=== PATIENT | female | born 1990 | race Caucasian/White ===

== ENCOUNTER 2024-08-05 11:13 | Outpatient (CLI) | payer OTHER | END 2024-08-05 11:58 | disposition home or self-care (01) | LOC: NST 11:13 | PROVIDERS: ATTEND Obstetrics & Gynecology Gynecology | DX: Z34.83 Encounter for supervision of other normal pregnancy, third trimester (principal) ==

== ENCOUNTER 2024-08-19 11:29 | Outpatient (CLI) | payer OTHER | END 2024-08-19 12:09 | disposition home or self-care (01) | LOC: NST 11:29 | PROVIDERS: ATTEND Obstetrics & Gynecology Maternal & Fetal Medicine | DX: Z3A.30 30 weeks gestation of pregnancy (principal) ==

== ENCOUNTER 2024-09-02 13:27 | Outpatient (CLI) | payer OTHER | END 2024-09-02 14:36 | disposition home or self-care (01) | LOC: NST 13:27 | PROVIDERS: ATTEND Obstetrics & Gynecology Maternal & Fetal Medicine | DX: Z34.83 Encounter for supervision of other normal pregnancy, third trimester (principal) ==

== ENCOUNTER 2024-09-16 12:15 | Outpatient (CLI) | payer OTHER | END 2024-09-16 13:18 | disposition home or self-care (01) | LOC: NST 12:15 | PROVIDERS: ATTEND Obstetrics & Gynecology Maternal & Fetal Medicine | DX: Z34.83 Encounter for supervision of other normal pregnancy, third trimester (principal) ==

== ENCOUNTER 2024-10-21 14:04 | Outpatient (CLI) | payer OTHER | END 2024-10-21 14:54 | disposition home or self-care (01) | LOC: NST 14:04 | PROVIDERS: ATTEND Obstetrics & Gynecology Maternal & Fetal Medicine | DX: Z3A.39 39 weeks gestation of pregnancy (principal) ==

== ENCOUNTER 2024-10-27 16:22 | Outpatient (CLI) | payer OTHER | END 2024-10-27 17:02 | disposition home or self-care (01) | LOC: NST 16:22 | PROVIDERS: ATTEND Obstetrics & Gynecology Maternal & Fetal Medicine | DX: Z34.83 Encounter for supervision of other normal pregnancy, third trimester (principal) ==

== ENCOUNTER 2024-10-30 13:05 | Inpatient (IN) | payer OTHER ==
[~2024-10-30] VITALS: Ht 160 cm; Wt 67.1 kg
[2024-10-31] VITALS (9 sets, daily range): BP systolic 104–128; BP diastolic 64–88
[2024-10-31] MEDS ORDERED: RINGERS SOLUTION,LACTATED 1,000 ML IV SCH (02:30)
[2024-10-31] MEDS ORDERED: MORPHINE SULFATE 4 MG/ML CARTRIDGE IV PRN (02:30)
[2024-10-31] MEDS ORDERED: MAXFE CAPLET1 EAC1 (03:19)
[2024-10-31] MEDS ORDERED: HYDROXYCHLOROQ200 MG (03:19)
[2024-10-31] MEDS ORDERED: PRENATAL TABLE1 EAC1 (03:20)
[2024-10-31 03:34] LABS: URINE APPEARANCE Cloudy; URINE BILIRRUBIN Negative (NEGATIVE); URINE BLOOD Large; URINE COLOR Orange; URINE GLUCOSE Negative (NEGATIVE); URINE KETONE Negative (NEGATIVE); URINE LEUKOCYTE Small; URINE NITRATE Negative; URINE PROTEIN 30 (NEGATIVE)
[2024-10-31 03:38] LABS: URINE BACTERIA 1276.6 uL (0.0-1933); URINE EPITHELIAL CELLS 40.2 uL (0.0-38.8); URINE RBC 5631.6 uL (0.0-20.8)
[2024-10-31 03:49] LABS: INR < 0.93; PARTIAL THROMBOPLASTIN TIME 25.3 SECONDS (22.0-34.0); PROTHROMBIN TIME 10.1 SECONDS (9.0-11.5)
[2024-10-31 03:51] LABS: BASO % 0.2 % (0.1-1.2); EOS # 0.08 (0.04-0.54); EOS % 0.9 % (0.7-7.0); HEMATOCRIT 33.7 % (34.1-44.9); HEMOGLOBIN 12.1 g/dL (11.2-15.7); LYMPH # 1.59 (1.18-3.74); MEAN CORPUSCULAR HEMOGLOBIN 31.3 pg (25.6-32.2); MONO # 0.67 (0.24-0.82); MONO % 7.6 % (4.7-12.5); NEUT % 72.6 % (34.0-71.1); PLATELET COUNT 214 K/uL (163-369); RED BLOOD COUNT 3.87 M/uL (3.93-5.22)
[2024-10-31 03:54] LABS: ALBUMIN 3.3 gm/dL (3.4-5.0); BILIRUBIN TOTAL 0.25 mg/dL (0.3-1.2); CALCIUM 8.7 mg/dL (8.5-10.1); CREATININE SERUM 0.54 mg/dL (0.55-1.02); GFR 130.83; POTASSIUM 4.2 mEq/L (3.5-5.1); TOTAL PROTEIN 8.3 gm/dL (6.4-8.2)
[2024-10-31 04:03] LABS: URINE CAST 0.29 uL (0.0-1.40)
[2024-10-31] MEDS ORDERED: CHLORHEXIDINE GLUCONATE 120 ML BOTTLE TOP ONE ×2 (04:47→09:45)
[2024-10-31] MEDS ORDERED: ERYTHROMYCIN BASE OPHT 1GM EACH TUBE OP ONE ×2 (04:47→09:45)
[2024-10-31] MEDS ORDERED: OXYTOCIN 20 UNITS/1000ML RL PIGGYBAG IV ONE ×2 (04:47→07:14)
[2024-10-31] MEDS ORDERED: LIDOCAINE HCL 1% 10ML VIAL ONE (04:48)
[2024-10-31] MEDS ORDERED: OxyCODONE HCL/APAP UD (PERCOCET) PO PRN (07:45)
[2024-10-31] MEDS ORDERED: IBUprofen 400 MG TABLET PO PRN (07:45)
[2024-10-31] MEDS ORDERED: OXYTOCIN 1,000 ML IV SCH (07:45)
[2024-10-31] MEDS ORDERED: OxyCODONE HCL 5 MG TABLET (ROXICODONE) PO PRN (07:45)
[2024-10-31] MEDS ORDERED: ACETAMINOPHEN 325 MG TABLET PO SCH (09:00)
[2024-10-31] MEDS ORDERED: LIDOCAINE HCL 1% 10ML VIAL IJ ONE (09:45)
[2024-11-01] VITALS: BP 105/72
[2024-11-01 08:00] VITALS: BP 105/73
[2024-11-01 16:58] VITALS: BP 112/76
[2024-11-01 20:46] VITALS: BP 111/77
[2024-11-02 00:08] VITALS: BP 117/78
[2024-11-02 05:00] VITALS: BP 102/66
[2024-11-02 08:00] VITALS: BP 119/80
== END 2024-11-02 14:16 | disposition home or self-care (01) | DRG 807 ==
LOC: OB/GYN 13:05 → LDR 10-31 02:19 → OB/GYN 10-31 08:17
PROVIDERS: Obstetrics & Gynecology; ADMIT Obstetrics & Gynecology Maternal & Fetal Medicine; ATTEND Obstetrics & Gynecology Maternal & Fetal Medicine
PROC: 10E0XZZ Delivery of Products of Conception, External Approach (ICD-10-PCS; principal; 2024-10-31)
PROC: 0W8NXZZ Division of Female Perineum, External Approach (ICD-10-PCS; 2024-10-31)
PROC: 4A1HXCZ Monitoring of Products of Conception, Cardiac Rate, External Approach (ICD-10-PCS; 2024-10-31)
DX: O80 Encounter for full-term uncomplicated delivery (principal); Z37.0 Single live birth; Z3A.40 40 weeks gestation of pregnancy

== ENCOUNTER → 2024-10-30 | Outpatient (CLI) | payer OTHER ==
[~2024-10-30] MED LIST: HYDROXYCHLOROQ200 MG; MAXFE CAPLET1 EAC1; PRENATAL TABLE1 EAC1
== END | disposition home or self-care (01) ==
LOC: NST 09:54
PROVIDERS: ATTEND Obstetrics & Gynecology Maternal & Fetal Medicine
DX: Z34.83 Encounter for supervision of other normal pregnancy, third trimester (principal)